=== PATIENT | female | born 1980 | race Hispanic/Latino ===

== ENCOUNTER 2019-06-07 22:16 | Emergency (ER) | payer SELFPAY ==
[2019-06-07] MEDS ORDERED: Adacel (T-DAP) 0.5 ML SYRINGE ONE (22:54)
--- NOTE | 2019-06-07 23:02 | RAD ---
Left hand 3 views HISTORY: Left hand injury. FINDINGS: Joint spaces are preserved. No acute fracture, dislocation, or radiopaque foreign bodies. S oft tissue swelling about the index finger. IMPRESSION: No acute osseous abnormalities are demonstrated.
== END 2019-06-07 23:37 | disposition home or self-care (01) ==
LOC: ERS 22:16
DX: S63.613A Unspecified sprain of left middle finger, initial encounter (principal); S60.411A Abrasion of left index finger, initial encounter; Z23 Encounter for immunization; W31.89XA Contact with other specified machinery, initial encounter; Y92.009 Unspecified place in unspecified non-institutional (private) residence as the place of occurrence of the external cause
CPT/HCPCS: 90471; 90715

== ENCOUNTER 2019-08-01 09:14 | Emergency (ER) | payer BC, SELFPAY ==
[2019-08-01] MEDS ORDERED: Ketorolac Tromethamine 30 MG/ML VIAL ONE (09:27)
[2019-08-01] MEDS ORDERED: Cyclobenzaprine 10 MG TAB ONE (09:35)
== END 2019-08-01 10:40 | disposition home or self-care (01) ==
LOC: ERS 09:14
DX: S29.012A Strain of muscle and tendon of back wall of thorax, initial encounter (principal); M62.838 Other muscle spasm; G43.909 Migraine, unspecified, not intractable, without status migrainosus; X50.1XXA Overexertion from prolonged static or awkward postures, initial encounter
CPT/HCPCS: 96372; 99283; J1885